=== PATIENT | male | born 1975 | race Hispanic/Latino ===

== ENCOUNTER 2023-02-07 21:28 | Inpatient (IN) | payer SELFPAY ==
[2023-02-07 23:51] LABS: Absolute Lymphocytes (CBC) 2.3 K/uL (0.7-4.9); Hematocrit 46.8 % (39.6-49.0); Lymphocytes % 23.3 % (15.3-44.8); MCV 90.1 fL (80-100); MPV 10.2 fL (7.6-11.3); RBC Red Blood Cell Count 5.19 M/uL (4.33-5.43)
[2023-02-07] MEDS ORDERED: ONDANSETRON 4 MG/2 ML VIAL ONE (23:51)
[2023-02-07] MEDS ORDERED: METOCLOPRAMIDE 10 MG/2mL INJ ONE (23:51)
[2023-02-07] MEDS ORDERED: NA CHLORIDE 0.9% 1,000 ML ONE (23:51)
[2023-02-08 00:13] LABS: Specific Gravity 1.022 (1.005-1.030); Urine Bacteria None Seen /HPF (<20); Urine Bilirubin NEGATIVE (Negative); Urine Blood Negative (Negative); Urine Clarity Turbid (Clear); Urine Color Yellow (Yellow); Urine Glucose NEGATIVE (Negative); Urine Mucus Slight /HPF (None Seen); Urine Protein TRACE (Negative); Urine Urobilinogen Normal (Normal)
[2023-02-08 00:18] LABS: Albumin 4.6 g/dL (3.4-5.0); Bilirubin Total 0.4 mg/dL (0.2-1.0); Potassium 3.7 mEq/L (3.5-5.1); Protein, Total 9.5 g/dL (6.4-8.2)
[2023-02-08] MEDS ORDERED: NA CHLORIDE 0.9% 1,000 ML ONE (01:20)
[2023-02-08 01:39] LABS: Barbiturates NEGATIVE (NEGATIVE); Benzodiazepines NEGATIVE (NEGATIVE); Cocaine NEGATIVE (NEGATIVE); METHAMPHETAM NEGATIVE (NEGATIVE); Methadone NEGATIVE (NEGATIVE); Opiates NEGATIVE (NEGATIVE); Phencyclidine NEGATIVE (NEGATIVE); THC Cannibis NEGATIVE (NEGATIVE)
--- NOTE | 2023-02-08 01:53 | P.HP ---
Certification for Inpatient Patient admitted to: Inpatient With expected LOS: <2 Midnights Patient will require the following post-hospital care: None Practitioner: I am a practitioner with admitting privileges, knowledge of patient current condition, hospital course, and medical plan of care. Services: Services provided to patient in accordance with Admission requirements found in Title 42 Section 412.3 of the Code of Federal Regulations Patient History Date of Service: 02/08/23 Reason for admission: acute renal failure History of Present Illness: 47-year-old male with past medical history of hypertension, hyperlipidemia presents to the ER complains of moderate severe vomiting for the past 2 days. He reports not being able to tolerate p.o. intake food or water, Patient reports mild abdominal discomfort, with bilateral flank pain for 2 days. He reports mild history of constipation, reports loose stools today. 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 He denies fever cough chills, shortness of breath, chest pain, edema. Laboratory evaluation CMP sodium 134, potassium normal 3.7, acute renal failure BUN 58, creatinine 3.48, estimated GFR 21, CT of the abdomen pelvis ordered - Past Medical/Surgical History -: HTN -: HLD -: no prior surg - Social History Smoking Status: Never smoker Alcohol use: No Caffeine use: Yes Review of Systems 10-point ROS is otherwise unremarkable Physical Examination - Physical Exam General: Alert, In no apparent distress, Oriented x3 HEENT: Atraumatic, Normocephalic, PERRLA Neck: Supple, 2+ carotid pulse no bruit, JVD not distended Respiratory: Clear to auscultation bilaterally, Normal air movement Cardiovascular: No edema, Normal pulses, Regular rate/rhythm Capillary refill: <2 Seconds Gastrointestinal: Normal bowel sounds (B) flank tenderness) Musculoskeletal: No clubbing, No swelling - Studies Laboratory Data (last 24 hrs) 02/07/23 23:42: Sodium 134 L, Potassium 3.7, BUN 58 H, Creatinine 3.48 H, Glucose 93, Total Bilirubin 0.4, AST 17, ALT 26, Alkaline Phosphatase 113, Lipase 53 02/07/23 23:42: WBC 9.80, Hgb 15.5, Hct 46.8, Plt Count 203 Assessment and Plan - Plan Assessment plan Dehydration secondary to nausea vomiting Acute renal failure Essential hypertension Hyperlipidemia DVT prophylaxis Assessment plan dehydration secondary to nausea vomiting-IV fluids, as needed antiemetics Acute renal failure-nephrology consult (Dr Llamas notified [id number] text), trend BUN and creatinine, CK, myoglobin, CT of the abdomen pelvis pending result Essential hypertension- Hyperlipidemia-resume home medications DVT prophylaxis Renal diet Full code DVT prophylaxis heparin Discharge Plan: Home Plan to discharge in: 48 Hours - Advance Directives Does patient have a Living Will: No Does patient have a Durable POA for Healthcare: No - Code Status/Comfort Care Code Status: Full Code Physician Review: Patient Assessed, Agree with Above Assessment and Plan Critical Care: No Time Spent Managing Pts Care (In Minutes): 55
[2023-02-08] MEDS ORDERED: ALPRAZOLAM 0.25 MG TABLET PO PRN (01:58)
[2023-02-08] MEDS ORDERED: ONDANSETRON 4 MG/2 ML VIAL IV PRN (01:58)
[2023-02-08] MEDS ORDERED: NA CHLORIDE 0.9% 1,000 ML IV SCH (02:00)
--- NOTE | 2023-02-08 02:12 | EDPHYS ---
Physician Documentation [facility] Name: Lonnie Dunne Age: 47 yrs Sex: Male : 1975 Arrival Date: 02/07/2023 Time: 21:28 Bed 15 Private MD: ED Physician Anderson Tucker HPI: 02/07 21:33 This 47 yrs old Male presents to ER via Unassigned with complaints of Nausea, sp4 Constipation, Fever, Vomiting. 02/08 02:02 vomiting. sp4 02:07 Patient complains of moderate severe vomiting for the past 2 days were no food or water sp4 stated. Patient states he has also had some abdominal discomfort associated with some constipation but he did report he had a stool this morning that was somewhat loose. No previous history of similar problem.. Historical: - Allergies: 02/07 21:46 No Known Allergies; kl - Home Meds: 21:46 lisinopril-hydrochlorothiazide 10-12.5 mg oral tablet daily [Active]; atorvastatin 20 kl mg oral tablet every evening [Active]; - PMHx: 21:46 Hypertensive disorder; high cholesterol; kl - PSHx: 21:46 None; kl - Immunization history:: Adult Immunizations up to date. - Social history:: Smoking status: Patient denies any tobacco usage or history of. - Family history:: not pertinent. ROS: 02/08 02:07 Constitutional: Negative for fever, chills, and weight loss, Eyes: Negative for injury, sp4 pain, redness, and discharge, ENT: Negative for injury, pain, and discharge, Neck: Negative for injury, pain, and swelling, Cardiovascular: Negative for chest pain, palpitations, and edema, Respiratory: Negative for shortness of breath, cough, wheezing, and pleuritic chest pain, Abdomen/GI: Negative for diarrhea, positive for abdominal cramps, nausea vomiting, and constipation Back: Negative for injury and pain, : Negative for injury, bleeding, discharge, and swelling, MS/Extremity: Negative for injury and deformity, Skin: Negative for injury, rash, and discoloration, Neuro: Negative for headache, weakness, numbness, tingling, and seizure, Psych: Negative for depression, anxiety, Allergy/Immunology: Negative for hives, rash, and allergies Endocrine: Negative for neck swelling, polydipsia, polyuria, polyphagia, and weight changes Hematologic/Lymphatic: Negative for swollen nodes, abnormal bleeding, and unusual bruising Exam: 02:07 Constitutional: This is a well developed, well nourished patient who is awake, alert, sp4 and in no acute distress. Head/Face: Normocephalic, atraumatic. Eyes: Pupils equal round and reactive to light, extra-ocular motions intact. Lids and lashes normal. Conjunctiva and sclera are not injected. Cornea within normal limits. Periorbital areas with no swelling, redness, or edema. ENT: Nares patent. No nasal discharge, no septal abnormalities noted. Tympanic membranes are normal and external auditory canals are clear. Oropharynx with no redness, swelling, or masses, exudates, or evidence of obstruction, uvula midline. Mucous membranes moist. Neck: Trachea midline, no thyromegaly or masses palpated, and no cervical lymphadenopathy. Supple, full range of motion without nuchal rigidity, or vertebral point tenderness. Chest/axilla: Normal chest wall appearance and motion. Nontender with no deformity. No lesions are appreciated. Cardiovascular: Regular rate and rhythm with a normal S1 and S2. No gallops, murmurs, or rubs. Normal PMI, no JVD. No pulse deficits. Respiratory: Lungs have equal breath sounds bilaterally, clear to auscultation and percussion. No rales, rhonchi or wheezes noted. No increased work of breathing, no retractions or nasal flaring. Abdomen/GI: Soft, non-tender, with normal bowel sounds. No distension or tympany. No guarding or rebound. No evidence of tenderness throughout. Back: No spinal tenderness. No costovertebral tenderness. Skin: Warm, dry with normal turgor. Normal color with no rashes, no lesions, and no evidence of cellulitis. MS/ Extremity: Pulses equal, no cyanosis. Neurovascular intact. Full, normal range of motion. Neuro: Awake and alert, GCS 15, oriented to person, place, time, and situation. Cranial nerves II-XII grossly intact. Motor strength 5/5 in all extremities. Sensory grossly intact. Psych: Awake, alert, with orientation to person, place and time. Behavior, mood, and affect are within normal limits Vital Signs: 02/07 21:43 BP 129 / 90; Pulse 97; Resp 18; Temp 98.5(TE); Pulse Ox 100% ; Weight 83.01 kg; Height kl 6 ft. 1 in. ; Pain 0/10; 02/08 00:44 BP 125 / 74; Pulse 70; Resp 16; Pulse Ox 99% on R/A; ll3 01:30 BP 107 / 71; Pulse 68; Resp 17; Pulse Ox 99% on R/A; ll3 02/07 21:43 Body Mass Index 24.14 (83.01 kg, 185.42 cm) kl 02/07 21:43 Pain Scale: Adult kl MDM: 02/07 21:38 Patient medically screened. sp4 02/08 01:41 ED course: HISTORY: Abdominal pain COMPARISON: None. TECHNIQUE: Abdomen/pelvis axial sp4 images acquired without contrast. Coronal and sagittal reformats created. Exam performed according to departmental dose-optimization program which includes automated exposure control, adjustment of mA and/or kV according to patient size, and/or use of iterative reconstruction technique. FINDINGS: No free air or significant free fluid. Multiple, small, nonobstructing, bilateral (right greater than left) renal stones. Liver, gallbladder, spleen, pancreas, adrenals, and urinary bladder unremarkable noncontrast appearance. Stomach difficult to accurately comment upon due to its minimal distention. Nonopacified small bowel, appendix, and large bowel appear grossly unremarkable. Portions of large bowel difficult to accurately evaluate due to lack of distention. Abdominal aorta unremarkable noncontrast appearance. Few small round left inferior pelvic calcifications likely represent phleboliths. Bones unremarkable. Mild L5/S1 degenerative disc disease. IMPRESSION: Multiple, small, non obstructing, bilateral (right greater than left) renal stones.. 02:07 Differential diagnosis: gastritis, cholecystitis, pancreatitis, appendicitis, sp4 diverticulitis, viral gastroenteritis, gastroenteritis. Data reviewed: vital signs, nurses notes, lab test result(s), amylase and lipase, CBC, electrolytes, Flu: hepatic panel, urinalysis, urine drug screen, radiologic studies, CT scan. Consideration of Admission/Observation Patient was admitted/placed on observation. Escalation of care including admission/observation considered. Management of patient was discussed with the following: Hospitalist: Patient discussed with admission team. ED course: Patient presents with pervasive nausea vomiting for the past 2 days, CT revealed no sign of bowel obstruction, patient has elevated creatinine above 3. Patient warrants admission for IV hydration for acute renal insufficiency associated with moderate dehydration. . 02/07 21:33 Order name: CBC with Diff; Complete Time: 01:02 [facility] 02/07 21:33 Order name: CMP; Complete Time: 01:02 [facility] 02/07 21:33 Order name: Lipase; Complete Time: 01:02 [facility] 02/07 21:33 Order name: Urinalysis w/ reflexes; Complete Time: 01:02 [facility] 02/08 01:03 Order name: Urine Drug Screen; Complete Time: 01:40 [facility] 02/08 02:00 Order name: Urinalysis w/ reflexes EDMS 02/08 02:00 Order name: Basic Metabolic Panel EDMS 02/08 02:00 Order name: Basic Metabolic Panel EDMS 02/08 02:00 Order name: Basic Metabolic Panel EDMS 02/08 02:00 Order name: CBC with Automated Diff EDMS 02/08 02:00 Order name: CBC with Automated Diff EDMS 02/08 02:00 Order name: CBC with Automated Diff EDMS 02/08 02:00 Order name: Magnesium EDMS 02/08 02:00 Order name: Magnesium EDMS 02/08 02:00 Order name: Magnesium EDMS 02/08 02:00 Order name: Phosphorus EDMS 02/08 02:00 Order name: Phosphorus EDMS 02/08 02:00 Order name: Phosphorus EDMS 02/07 21:48 Order name: CT Abd/Pelvis - IV Contrast Only [facility] 02/08 02:00 Order name: Renal EDMS 02/08 02:06 Order name: EKG; Complete Time: 02:07 [facility] 02/07 21:33 Order name: IV Saline Lock; Complete Time: 23:43 [facility] 02/07 21:33 Order name: Labs collected and sent; Complete Time: 23:43 [facility] Administered Medications: 02/07 23:50 Drug: Ondansetron IVP 4 mg Route: IVP; Site: right antecubital; [facility] 02/08 01:13 Follow up: Response: No adverse reaction [facility] 02/07 23:50 Drug: NS 0.9% IV 1000 ml Route: IV; Rate: 1 bolus; Site: right antecubital; [facility] 02/08 01:13 Follow up: Response: No adverse reaction; IV Status: Completed infusion; IV Intake: 3 1000ml 02/07 23:50 Drug: metoCLOPramide IVP 10 mg Route: IVP; Site: right antecubital; ll3 02/08 01:13 Follow up: Response: No adverse reaction 3 01:19 Drug: NS 0.9% IV 1000 ml Route: IV; Rate: 125 ml/hr; Site: right antecubital; ll3 Disposition Summary: 02/08/23 02:12 Hospitalization Ordered Hospitalization Status: Inpatient Admission sp4 Provider: Joao Heath sp4 [facility] sp4 Condition: Stable sp4 Problem: new sp4 Symptoms: have improved sp4 Bed/Room Type: Standard sp4 Room Assignment: 409(02/08/23 02:34) cg Diagnosis - Dehydration sp4 - Acute kidney injury secondary to moderate dehydration. Acute renal insufficiency sp4 Forms: - Medication Reconciliation Form sp4 - SBAR form sp4 Signatures: Dispatcher [employer] EDAmina Mcgarry RN RN kl Garcia, Cindy, RN RN cg Loubet, Lynsea, RN RN 3 Anderson Tucker MD MD sp4 Corrections: (The following items were deleted from the chart) 01:13 01:03 Urinalysis W/Microscopic+U.LAB.BRZ ordered. EDAR EDMS 02:34 02:12 sp4 cg
--- NOTE | 2023-02-08 02:12 | ER ---
Nurse's Notes [facility] Name: Lonnie Dunne Age: 47 yrs Sex: Male : 1975 Arrival Date: 02/07/2023 Time: 21:28 Bed 15 Private MD: Diagnosis: Dehydration;Acute kidney injury secondary to moderate dehydration. Acute renal insufficiency Presentation: 02/07 21:43 Chief complaint: Patient states: nausea and vomiting constipation x 2 days. Coronavirus kl screen: Vaccine status: Patient reports being unvaccinated. Ebola Screen: Patient negative for fever greater than or equal to 101.5 degrees Fahrenheit, and additional compatible Ebola Virus Disease symptoms. Initial Sepsis Screen: Does the patient meet any 2 criteria? No. Patient's initial sepsis screen is negative. Does the patient have a suspected source of infection? No. Patient's initial sepsis screen is negative. Risk Assessment: Do you want to hurt yourself or someone else? Patient reports no desire to harm self or others. 21:43 Method Of Arrival: Ambulatory 21:43 Acuity: OZZIE 3 kl 22:00 Onset of symptoms was February 05, 2023. ll3 Triage Assessment: 21:48 General: Appears in no apparent distress. Behavior is calm, cooperative. Pain: Denies kl pain. GI: Reports constipation, intolerance of fluids, intolerance of food, nausea, vomiting. Historical: - Allergies: 21:46 No Known Allergies; kl - Home Meds: 21:46 lisinopril-hydrochlorothiazide 10-12.5 mg oral tablet daily [Active]; atorvastatin 20 kl mg oral tablet every evening [Active]; - PMHx: 21:46 Hypertensive disorder; high cholesterol; kl - PSHx: 21:46 None; kl - Immunization history:: Adult Immunizations up to date. - Social history:: Smoking status: Patient denies any tobacco usage or history of. - Family history:: not pertinent. Screenin/13 01:57 [facility] ED Fall Risk Assessment (Adult) History of falling in the last 3 months, ll3 including since admission No falls in past 3 months (0 pts) Confusion or Disorientation No (0 pts) Intoxicated or Sedated No (0 pts) Impaired Gait No (0 pts) Mobility Assist Device Used No (0 pt) Altered Elimination No (0 pt) Score/Fall Risk Level 0 - 2 = Low Risk Oriented to surroundings, Maintained a safe environment, Educated pt \T\ family on fall prevention, incl call for assistance when getting out of bed. Abuse screen: Denies threats or abuse. Denies injuries from another. Nutritional screening: No deficits noted. Tuberculosis screening: No symptoms or risk factors identified. Assessment: 00:44 General: Appears comfortable, Behavior is calm, cooperative. Pain: Denies pain. GI: ll3 Abdomen is round non-distended, Reports lower abdominal pain, upper abdominal pain, constipation, nausea, vomiting. Derm: Skin is pink, warm \T\ dry. 01:57 Reassessment: Patient and/or family updated on plan of care and expected duration. Pain ll3 level reassessed. Patient is alert, oriented x 3, equal unlabored respirations, skin warm/dry/pink. Patient states symptoms have improved. Vital Signs: 02/07 21:43 BP 129 / 90; Pulse 97; Resp 18; Temp 98.5(TE); Pulse Ox 100% ; Weight 83.01 kg; Height kl 6 ft. 1 in. ; Pain 0/10; 02/08 00:44 BP 125 / 74; Pulse 70; Resp 16; Pulse Ox 99% on R/A; ll3 01:30 BP 107 / 71; Pulse 68; Resp 17; Pulse Ox 99% on R/A; ll3 02/07 21:43 Body Mass Index 24.14 (83.01 kg, 185.42 cm) 02/07 21:43 Pain Scale: Adult ED Course: 02/07 21:31 Patient arrived in ED. ja2 21:33 Anderson Tucker MD is Attending Physician. sp4 21:46 Triage completed. kl 22:00 Patient has correct armband on for positive identification. Bed in low position. Call ll3 light in reach. Side rails up X 1. Adult w/ patient. 23:10 Arm band placed on Patient placed in an exam room, on a stretcher, on pulse oximetry. ll3 23:43 CBC with Diff Sent. mb9 23:43 CMP Sent. mb9 23:43 Lipase Sent. mb9 23:43 Inserted saline lock: 20 gauge in right antecubital area, using aseptic technique. 9 02/08 01:01 CT Abd/Pelvis - IV Contrast Only In Process Unspecified. EDMS 01:57 No provider procedures requiring assistance completed. ll3 02:11 Joao Heath is Hospitalizing Provider. sp4 02:48 Patient admitted, IV remains in place. intact, No redness/swelling at site. lg3 Administered Medications: 02/07 23:50 Drug: Ondansetron IVP 4 mg Route: IVP; Site: right antecubital; ll3 02/08 01:13 Follow up: Response: No adverse reaction ll3 02/07 23:50 Drug: NS 0.9% IV 1000 ml Route: IV; Rate: 1 bolus; Site: right antecubital; ll3 02/08 01:13 Follow up: Response: No adverse reaction; IV Status: Completed infusion; IV Intake: ll3 1000ml 02/07 23:50 Drug: metoCLOPramide IVP 10 mg Route: IVP; Site: right antecubital; 3 02/08 01:13 Follow up: Response: No adverse reaction ll3 01:19 Drug: NS 0.9% IV 1000 ml Route: IV; Rate: 125 ml/hr; Site: right antecubital; ll3 Medication: 01:57 VIS not applicable for this client. ll3 Intake: 01:13 IV: 1000ml; Total: 1000ml. ll3 Outcome: 02:12 Decision to Hospitalize by Provider. sp4 02:48 Admitted to Med/surg accompanied by tech, via wheelchair, room 409, Report called to Fabricio Beckham 02:48 Condition: stable 02:48 Instructed on the need for admit, Demonstrated understanding of instructions. 02:48 Patient left the ED. 3 Signatures: Dispatcher [employer] Amina Bowman RN RN kl Gibson, Lacie, RN RN lg3 Vickie Bright Lynsea, RN RN ll3 Sugar Greco RN RN mb9 Potepalov, Sergey, MD MD sp4
[2023-02-08 03:28] VITALS: BMI 24.1
[2023-02-08 06:15] LABS: Absolute Lymphocytes (CBC) 2.6 K/uL (0.7-4.9); Hematocrit 39.9 % (39.6-49.0); Lymphocytes % 30.4 % (15.3-44.8); MCV 90.3 fL (80-100); MPV 10.6 fL (7.6-11.3); RBC Red Blood Cell Count 4.42 M/uL (4.33-5.43)
[2023-02-08 06:39] LABS: Magnesium 2.7 mg/dL (1.6-2.4); Phosphorus 3.4 mg/dL (2.5-4.9)
[2023-02-08 07:28] LABS: Potassium 3.6 mEq/L (3.5-5.1)
[2023-02-08 08:06] LABS: Specific Gravity 1.022 (1.005-1.030); Urine Bacteria None Seen /HPF (<20); Urine Bilirubin NEGATIVE (Negative); Urine Blood Negative (Negative); Urine Clarity Clear (Clear); Urine Color Light-Yellow (Yellow); Urine Glucose NEGATIVE (Negative); Urine Mucus Slight /HPF (None Seen); Urine Protein TRACE (Negative); Urine RBC <5 /HPF (None Seen); Urine Urobilinogen Normal (Normal)
[2023-02-08 08:09] LABS: Uric Acid 10.4 mg/dL (3.5-7.2)
[2023-02-08] MEDS: HEPARIN 5000 UNIT/ML 1 ML VIAL SQ SCH ×2 (09:11→16:25)
[2023-02-08 09:58] LABS: Protime INR 0.96
--- NOTE | 2023-02-08 11:03 | RAD REPORT ---
EXAM DESCRIPTION: US - Renal Ultrasound-Complete - 02/08/2023 10:13 am CLINICAL HISTORY: acute renal failure COMPARISON: Abdomen Pelvis W Contrast dated 02/08/2023 TECHNIQUE: Sonographic grayscale and color flow images of the kidneys and bladder were obtained. FINDINGS: Both kidneys are normal in size, shape and echotexture. The right kidney measures 11.9 cm in length. No hydronephrosis although there is mild prominence of t he right renal pelvis. No focal mass or perinephric fluid. The left kidney measures 10.7 cm in length. No hydronephrosis, focal mass or perinephric fluid. Punctate mildly echogenic foci near the pelvis bilaterally, nonshadowing, could represent vascular wa ll/calcification, or small calculi. The urinary bladder is without gross abnormality seen. Mildly prominent prostate gland IMPRESSION: Mild prominence of the right renal pelvis without karyn hydronephrosis bilaterally. Scattered echogenic foci bilaterally, could represent vascular wall/ calcification, or small calculi. Mildly prominent prostate gland.
[2023-02-08] MEDS ORDERED: POTASSIUM CL SA 10 MEQ TAB PO ONE (13:14)
[2023-02-08] MEDS: NA CHLORIDE 0.9% 1,000 ML IV SCH ×2 (16:25→23:14)
--- NOTE | 2023-02-08 16:57 | P.PN ---
Date of Service: 02/08/23 Patient seen and examined. He reports no history of kidney disease. ALICE likely secondary to dehydration. He currently has no complain. He denies any nausea or vomiting or diarrhea. Renal function improved significantly with IV fluid. Continue IV hydration.
--- NOTE | 2023-02-08 18:32 | CON ---
Date of Consultation: 02/08/2023 Reason For Consultation: Elevated BUN and creatinine, fluid management. History Of Present Illness: This is a 47-year-old gentleman with significant past medical history of hypertension, hyperlipidemia, patient came to the hospital complaining from nausea and vomiting for the last few days with constipation. Upon arrival to the hospital, found to have elevation in BUN an d creatinine. Creatinine 3.4, and hypokalemia. For that reason, we have been consulted. Patient de nied taking any nonsteroidal. No IV contrast. Patient denied any recent change in his medications. Patient been at home on LYNN inhibitor. Past Medical History: Includes: 1.Hypertension. 2.Hyperlipidemia. Social History: Denies smoking. Active alcohol. No drug abuse. Home Medications: Includes lisinopril and atorvastatin. Review of Systems: Head and Neck: No red eye. No ear pain. GI: Has nausea, vomiting. Has constipation. : No polyuria, no dysuria, no hematuria. Avionics Mechanic: Not applicable. Respiratory: No shortness of breath. Cardiovascular: No chest pain. No neuropathy. No weakness. Musculoskeletal: Generalized fatigue and abdominal pain. Physical Examination: Vital Signs: When I saw the patient, blood pressure 108/56. Patient did not have any lower blood pr essure. Pulse of 60. Afebrile. Chest: Clear to auscultation. Heart: S1, S2. Regular. Abdomen: Soft, nontender. Extremity: No edema. Neuro: Alert. No focality. Laboratory Data: Hemoglobin 13.2, upon arrival it was 15.5. Sodium 137, potassium 3.6, bicarb 25, B UN 53, creatinine 2.5, calcium 7.8 yesterday. Upon admission, sodium 134, creatinine 3.4, PTH is 64. Urinalysis was negative for infection. Urine drug screen was negative. Current Medications: The patient on, it includes heparin, alprazolam, D5 normal saline at 75 per gonzalo r. Assessment And Plan: 1.Acute kidney injury secondary to prerenal, superimposed with LYNN inhibitor use. Obstructive uropa thy has been ruled out. Normal size kidney. I am going to increase IV fluid to 100. Keep holding l isinopril and we will monitor the patient. We will send for PTH to evaluate the chronicity of the di sease. 2.Hypertension with the presence of acute kidney injury. Hold LYNN inhibitor. 3.Hyponatremia, depletion. Continue IV fluid. 4.Hypokalemia. We will supplement. 5.Gastroenteritis with constipation. As by primary. Thank you, Dr. Heath, for allowing us to participate in the care of your patient. ODALIS Voice ID: [id number] Report ID: [id number]
--- NOTE | 2023-02-08 20:33 | RAD REPORT ---
EXAM DESCRIPTION: CT - Abdomen Pelvis W Contrast - 02/08/2023 4:26 am CLINICAL HISTORY: Abdominal pain COMPARISON: None. TECHNIQUE: Abdomen/pelvis axial images acquired without contrast. Coronal and sagittal reformats cre ated. Exam performed according to departmental dose-optimization program which includes automated exp osure control, adjustment of mA and/or kV according to patient size, and/or use of iterative reconstr uction technique. FINDINGS: No free air or significant free fluid. Multiple, small, nonobstructing, bilateral (right greater than left) renal stones. Liver, gallbladder, spleen, pancreas, adrenals, and urinary bladder unremarkable noncontrast appearan ce. Stomach difficult to accurately comment upon due to its minimal distention. Nonopacified small bowel, appendix, and large bowel appear grossly unremarkable. Portions of large bowel difficult to accurately evaluate due to lack of distention. Abdominal aorta unremarkable noncontrast appearance. Few small round left inferior pelvic calcifications likely represent phleboliths. Bones unremarkable. Mild L5/S1 degenerative disc disease. IMPRESSION: Multiple, small, nonobstructing, bilateral (right greater than left) renal stones. Electronically signed by: Yovany Damon MD 02/08/2023 1:33 AM CDT Due to temporary technical issues with the PACS/Fluency reporting system, reports are being signed by the in house radiologists without review as a courtesy to insure prompt reporting. The interpreting radiologist is fully responsible for the content of the report.
[2023-02-09] MEDS: HEPARIN 5000 UNIT/ML 1 ML VIAL SQ SCH ×2 (01:00→09:29)
[2023-02-09 08:26] VITALS: BP 121/81; TEMP 97.9
[2023-02-09 08:28] LABS: Specific Gravity 1.023 (1.005-1.030); Urine Bilirubin NEGATIVE (Negative); Urine Blood Negative (Negative); Urine Clarity Clear (Clear); Urine Color Light-Yellow (Yellow); Urine Glucose NEGATIVE (Negative); Urine Protein NEGATIVE (Negative); Urine Urobilinogen Normal (Normal); Urine pH 5.5 (5.0-7.0)
[2023-02-09 08:39] LABS: Absolute Lymphocytes (CBC) 1.6 K/uL (0.7-4.9); Hematocrit 37.4 % (39.6-49.0); Lymphocytes % 25.5 % (15.3-44.8); MCV 90.5 fL (80-100); RBC Red Blood Cell Count 4.14 M/uL (4.33-5.43)
[2023-02-09 09:14] LABS: Potassium 4.7 mEq/L (3.5-5.1)
[2023-02-09] MEDS: NA CHLORIDE 0.9% 1,000 ML IV SCH (09:14)
[2023-02-09 09:17] LABS: Magnesium 2.4 mg/dL (1.6-2.4); Phosphorus 1.6 mg/dL (2.5-4.9)
[2023-02-09 10:11] VITALS: O2SAT 96
[2023-02-09] MEDS: POTASS/SODIUM PHOSPHATE 1 PKT POWD.PACK PO SCH ×3 (10:39→14:07)
--- NOTE | 2023-02-09 12:36 | P.DS ---
Admission Date: 02/08/23 Discharge Date: 02/09/23 Disposition: ROUTINE DISCHARGE Discharge Condition: FAIR Reason for Admission: acute renal failure - Problems (1) Acute renal failure Status: Acute (2) Essential hypertension Status: Acute (3) Hyperlipidemia Status: Acute Brief History of Present Illness: 47-year-old male with past medical history of hypertension, hyperlipidemia presents to the ER complains of moderate severe vomiting for the past 2 days. He reports not being able to tolerate p.o. intake, food or water, Patient reported mild abdominal discomfort, with bilateral flank pain for 2 days. He reported loose stools. He reports working out in the heat as [employer]. He denied fever cough chills, shortness of breath, chest pain, edema. Laboratory evaluation CMP sodium 134, potassium normal 3.7, acute renal failure BUN 58, creatinine 3.48, estimated GFR 21, CT of the abdomen pelvis unremarkable. Patient was hospitalized for further management of acute renal failure. Hospital Course: Patient admitted to the medical floor and aggressively hydrated with IV fluid. He was seen in consultation by nephrology who assisted with management. His ALICE responded well to the IV fluid. Serum creatinine normalized. He had no more episodes of vomiting, had no diarrhea. He tolerated his diet and patient was ambulatory. He is clinically stable for discharge. He is on lisinopril and hydrochlorothiazide which were held during the hospital stay and resumed on discharge. Vital Signs/Physical Exam: Temp Pulse Resp BP Pulse Ox 97.9 F 64 16 121/81 96 02/09/23 08:00 02/09/23 08:00 02/09/23 08:00 02/09/23 08:00 02/09/23 08:00 General: Alert, In no apparent distress, Oriented x3 HEENT: Mucous membr. moist/pink Neck: Supple, JVD not distended Respiratory: Clear to auscultation bilaterally, Normal air movement Cardiovascular: No edema, Regular rate/rhythm, Normal S1 S2 Gastrointestinal: Normal bowel sounds, Soft and benign, Non-distended, No tenderness Musculoskeletal: No swelling Integumentary: No rashes, No cyanosis Neurological: Normal strength at 5/5 x4 extr Laboratory Data at Discharge: WBC 6.10 thou/uL (4.3-10.9) 02/09/23 08:05 Hgb 12.6 g/dL (13.6-17.9) L 02/09/23 08:05 Hct 37.4 % (39.6-49.0) L 02/09/23 08:05 Plt Count 141 thou/uL (152-406) L 02/09/23 08:05 PT 11.4 SECONDS (9.2-12.8) 02/08/23 07:42 INR 0.96 02/08/23 07:42 Sodium 141 mEq/L (136-145) 02/09/23 08:05 Potassium 4.7 mEq/L (3.5-5.1) D 02/09/23 08:05 BUN 27 mg/dL (7-18) H 02/09/23 08:05 Creatinine 1.13 mg/dL (0.70-1.30) 02/09/23 08:05 Glucose 103 mg/dL (74-106) 02/09/23 08:05 Uric Acid 10.4 mg/dL (3.5-7.2) H 02/08/23 05:13 Phosphorus 1.6 mg/dL (2.5-4.9) L 02/09/23 08:05 Magnesium 2.4 mg/dL (1.6-2.4) 02/09/23 08:05 Total Bilirubin 0.4 mg/dL (0.2-1.0) 02/07/23 23:42 AST 17 U/L (15-37) 02/07/23 23:42 ALT 26 U/L (16-61) 02/07/23 23:42 Alkaline Phosphatase 113 U/L (45-117) 02/07/23 23:42 Lipase 53 U/L (13-75) 02/07/23 23:42 Home Medications: Atorvastatin Calcium [Lipitor*] 10 mg PO BEDTIME 02/08/23 Diet: AHA Activity: Ad isabelle Followup: Ludmila Anaya MD [ACTIVE - CAN ADMIT] - 1-2 Weeks (kidney doctor- call to schedule an appointment) Time spent managing pt's care (in minutes): 33
== END 2023-02-09 14:19 | disposition home or self-care (01) | DRG 683 ==
LOC: ER 21:28 → ERHOLD 02-08 01:54 → 4TH 02-08 02:43
PROVIDERS: ADMIT Internal Medicine; ATTEND Internal Medicine
DX: N17.9 Acute kidney failure, unspecified (principal); E87.1 Hypo-osmolality and hyponatremia; E86.0 Dehydration; I10 Essential (primary) hypertension; E87.6 Hypokalemia; E78.5 Hyperlipidemia, unspecified; K52.9 Noninfective gastroenteritis and colitis, unspecified; K59.00 Constipation, unspecified; R11.2 Nausea with vomiting, unspecified; Z79.899 Other long term (current) drug therapy
CPT/HCPCS: 36415; 74177; 76770; 80048; 80053; 80307; 81001; 81003; 82550; 82570; 83690; 83735; 83874; 83970; 84100; 84156; 84550; 85025; 85610; 93005; 96361; 96374; 96375; 99285; J1644; J2405; J2765; J7030

== ENCOUNTER 2023-03-04 11:50 | Emergency (ER) | payer SELFPAY ==
--- OUTSIDE RECORDS SUMMARY | 2023-03-04 11:52 | XMS REPORT | Continuity of Care Document ---
:1975 Author Organization [facility] t Address [address] [place] [address] [address] [place] [address] Care Team Providers Name Role Phone Glenna Arnoldo Gandhi Attending Clinician Unavailable Physician, No Primary or Family Admitting Clinician Unavaila JOHNSON Carey Admitting Clinician Unavailable Payers Payer Name Policy Type Policy Number Effective Date Expiration Date S ource Problems This patient has no known problems. Allergies, Adverse Reactions, Alerts Allergy Allergy Status Severity Reaction(s) Onset Inactive Treating Comm ents Source Name Type Date Date Clinician No Known DA Active U 2014-07 [facility] All[facility]ie 2-15 Clear s 00:00: [address] Medications This patient has no known medications. Procedures This patient has no known procedures. Encounters Start End Encounter Admission Attending Care Care Encounter Source Date/Time Date/Time Type Type Clinicians Facility Department ID 2021-12-21 2021-12-21 Emergency EM OJODY george AERS [id number] [facility] 09:57:00 10:47:00 [place] 99 [facility] 2021-12-21 2021-12-21 Emergency EM JODY Manzanares HCACL [id number] [facility] 09:57:00 10:47:00 [place] [id number] [facility] Results Test Description Test Time Test Comments Results Result Comments Source Coronavirus 2019 nCoV Bedside 2021-12-21 10:40:00 Test Item Value Reference Range Interpretation Comme nts Coronavirus Negative Negative 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 With NEAR technology,amplified target detection is [id number]) achieved with the use offluorescently labeled molecular beacons, compar able to PCRtechniques Nega tive results sh ould be treated as presumptive and, ifinconsistent with clinical signs and symptoms or necessaryfor patient managem ent, should be tested with an alternativemole cular assay. Negative results do not preclude [id number] tion and should not be used as the sole basis forpatient alexadnria gement decisions. Negative results should beconsidered in the context of a patient's recent exposures,histo ry, presence of clinical signs and symptoms consistentwith COVID-19. INFLUENZA A B [id number] 10:39:00 Test Item Value Reference Range Interpretation Comments INFLUENZA A POC POSITIVE NEGATIVE A (test code = INFLAAG) INFLUENZA B POC NEGATIVE NEGATIVE Performed by certified (test code = glue jointer operator at [facility] INFLBAG) CtrID-NOW Influ padmini A&B assay is a rapi d molecular in vitro diagno stic test utilizing an is othermal nucleic acidamp lification technology for the qualitative det ectionand discrimination of influenza A and B viral RNA. AG STREP GROUP A (THROAT)2021-12-21 10:35:00 Test Item Value Reference Range Interpretation Comments AG STREP GROUP A NEGATIVE Negative Performed b y certified (THROAT) (test grader at [facility] code = STREPA) CtrID-NOW Str ep-A is a rapid, instrume nt-based, molecular invit ro diagnostic test utilizing isothermal nucleic acidamp lification technology for the qualitative det ection ofStreptococcus pyogenes Notes Date/Time Note Provider Source 2021-12-21 10:40:00-00:00 [facility] ([facility]) EMERGENCY PROVIDER REPORT REPORT#:[id number] REPORT STATUS: Signed DATE:12/21/21 TIME: 104 PATIENT: GIDEON CHUNG UNIT #: [id number] ROOM/BED: AGE: 46 SEX: M PCP PHYS: Undefined Provider SERVICE AUTHOR: Natali Manzanares MD * ALL edits or amendments must be made on the [employer]/computer document * HPI-URI/Cough/Cold Free Text HPI Notes Free Text HPI Notes 46-year-old male with no past medical history pr esents with sore throat and cough. Patient reports on Sunday, he developed s ore throat, productive cough, decreased appetite, myalgias. Patient reports fe rikki 100.9 today. Multiple family members at home also sick. Patient report s taking Mucinex and DayQuil with some relief. Patient is vaccinated against COVID but not against flu this season. General Initial Greet Date/Time 12/21/21956 Presentation Chief Complaint Cough, productive, Fever, Sore t hroat Review of Systems Focused Review of Systems Constitutional Reports: Fever. Ears/Nose/Throat Reports: Sore throat. Respiratory Reports: Cough, productive. Denies: Shortness of breath. GI Denies: Vomiting. Additional Review of Systems Musculoskeletal Reports: Myalgia. Past Medical History - Adult Stated Complaint SORETHROAT, BODYACHES, COUGH, F ATIGUE, FEVER Allergies Coded Allergies: No Known Allergies (07/13/15) Calculated Suicide Risk (nurs) No risk Pt reports no significant: Past medical history Smoking status: Smoking status for patients 13 years old or old er: Current every day smoker Physical Exam Vital Signs Vital Signs First Documented: Result Date Time Pulse Ox 97 12/21 0959 B/P 135/89 12/21 0959 B/P Mean 104 12/21 958 O2 Delivery Room air 12/21 958 Temp 38.3 12/21 958 Pulse 101 12/21 0959 Resp 20 12/21 958 Last Documented: Result Date Time Pulse Ox 97 12/21 0959 B/P 135/89 12/21 0959 B/P Mean 104 05/25 0959 O2 Delivery Room air 05/25 0959 Temp 38.3 12/21 958 Pulse 101 12/21 958 Resp 20 12/21 958 Review of Vital Signs Reviewed Focused PE General/Const General/Const Awake, Alert, No acute distress, Not toxic appearing Ears/Nose/Throat Ears/Nose/Throat Airway patent, Mucous membrane s moist, Pharynx NL, No peritonsillar abscess MS Neck Neck No meningismus, Full range of motion Resp/Chest Respiratory/Chest Breath sounds NL, Breath soun ds = bilat, No respiratory distress Cardiovascular Cardiovascular Regular rhythm, Heart sounds NL Heart Rate/Rhythm Tachycardia (low 100s in setting of fever). Skin Skin Color NL Interpretation Diagnostics Lab Results Interpretation Results Laboratory Tests: 12/21 12/21 12/21 1028 1028 1027 Serology POC Influenza A Ag (NEGATIVE) POSITIVE H POC Influenza B Ag (NEGATIVE) NEGATIVE SARS CoV-2 RNA Rapid VIRIDIANA (Negative) Negative Group A Strep Screen (Negative) NEGATIVE Re-Evaluation MDM Free Text MDM Notes Free Text MDM Notes 46-year-old male presents with URI sympt oms. Lung exam unremarkable, suspicion for pneumonia. Will test for strep, COVI D, influenza. Tylenol given for fever. Re-Evaluation/Progress Re-Evaluation/Progress Text/Dict Note Flu a positive. Strep and COVID-negative. Patien t out of the window for Tamiflu. Discharged home with lynn Yeboahtructions for symptomatic management, return precautions, PCP follow-up. URI/Flu Adult MDM Note The patient is now resting c omfortably, is alert and in no distress. The patient has a normal mental status and is neurologically intact. The patient appears well and is able to tolerate food or fluid by mouth, and there is no significant dehydration. There is no res piratory distress and no signs of systemic toxicity. The history, exam, diagnostic testing (if any) a nd current condition do not demonstrate an infectious process such as mening itis, severe pneumonia, retropharyngeal abscess, epiglottitis, sepsis or other serious bacterial infection requiring further testing, treatment, consultation, or admission at this time. The vital signs have been sta ble. The patient's condition is stable and appropriate for discharge. The patient will pursue further outpatient evaluation with the primary care physician or ot her designated or consulting physician as indicated in the discharge instruct ions. ED Course Medication(s) Ordered Medication(s) Ordered: Central Nervous System Agents Sig/Jocy Start time Last Medication Dose Route Stop Time Status Admin Acetaminophen 650 MG X1ED STA 12/21 1008 DC PO 12/21 1009 1018 Patient Discharge Departure Vital Signs/Condition Vital Signs First Documented: Result Date Time Pulse Ox 97 12/21 0959 B/P 135/89 12/21 0959 B/P Mean 104 12/21 0959 O2 Delivery Room air 12/21 09 Temp 38.3 12/21 0959 Pulse 101 12/21 0959 Resp 20 12/21 0959 Last Documented: Result Date Time Pulse Ox 97 12/21 0959 B/P 135/89 12/21 0959 B/P Mean 104 12/21 0959 O2 Delivery Room air 12/21 0859 Temp 38.3 12/21 0959 Pulse 101 12/21 0959 Resp 20 12/21 0959 All vital signs available at the time of this en try have been reviewed. Clinical Impression Clinical Impression Primary Impression: Influenza A Disposition Decision Discharge )( Discharged to Home Yes )( Time 1041 )( Date 12/21/21 Discharge/Care Plan Counseled Regarding Diagnosis, Lab resul ts, Prescriptions, Need for follow-up, When to return to ED (Auto) Prescriptions Current Visit Scripts BENZONATATE (TESSALON) 100 MG PO Q8H PRN PRN COU GH BENZONATATE (TESSALON) 100 MG PO Q8H PRN PRN CO [facility] #30 CAPS Patient Instructions ED Influenza (Adult) Additional Instructions While he have a fever, you a re still infectious. Need to isolate until 24 hours since last fever, without having taken Tylenol o r ibuprofen. Patient should not attend classes until without a fever for 24 hours. Referrals Provider Group: PRIMARY CARE Follow-Up: 1 Week Discharge Note I have spoken with the patie nt and/or caregivers. I have explained the patient's condition, diagnoses and beth atment plan based on the information available to me at this time. I have answered the patient's and/ or caregiver's questions and addressed any concerns. The patient and/or careg queta have as good an understanding of the patient 's diagnosis, condition and treatment plan as can be expected at this point. The vital signs have bee n stable. The patient's condition is stable and appr opriate for discharge from the emergency department. The patient will pursue further outpatient evalu ation with the primary care physician or other designated or consulting phys ician as outlined in the discharge instructions. The patient and/or caregivers are agreeable to this plan of care and follow-up instructions have been exp lained in detail. The patient and/or caregivers have received these instructio ns in written format and have expressed an understanding of the discharge inst ructions. The patient and/or caregivers are aware that any significant change in condition or worsening of symptoms should prompt an immediate return to [facility] or the closest emergency department or a call to 911. at 1127 RPT #:[id number] END OF REPORT
--- NOTE | 2023-03-04 12:35 | RAD REPORT ---
EXAM DESCRIPTION: CT - Stone Protocol - 03/04/2023 12:24 pm CLINICAL HISTORY: Abdominal pain. Right flank pain COMPARISON: February 08, 2023 TECHNIQUE: Computed axial tomography of the abdomen pelvis was obtained without oral or IV contrast. Lack of IV and oral contrast limits evaluation of solid organs, appendix, bowel, and vessels. Gonzalez l reformatted images were obtained and reviewed. All CT scans are performed using dose optimization technique as appropriate and may include automated exposure control or mA/KV adjustment according to patient size. FINDINGS: Multiple small bilateral renal calculi. No hydronephrosis. Ureteral calculus is seen. No b ladder calculus The liver, spleen, pancreas and adrenals appear grossly normal There is no evidence of diverticulitis. The appendix appears normal Mild posterior subluxation L5 on S1 with spondylosis IMPRESSION: Multiple, small bilateral nonobstructing renal calculi
[2023-03-04 12:51] LABS: Absolute Lymphocytes (CBC) 1.8 K/uL (0.7-4.9); Hematocrit 38.6 % (39.6-49.0); Lymphocytes % 27.3 % (15.3-44.8); MCV 91.3 fL (80-100); MPV 9.8 fL (7.6-11.3); Platelets 166 thou/uL (152-406); RBC Red Blood Cell Count 4.23 M/uL (4.33-5.43)
[2023-03-04 13:11] LABS: Specific Gravity 1.009 (1.005-1.030); Urine Bilirubin NEGATIVE (Negative); Urine Blood Negative (Negative); Urine Clarity Clear (Clear); Urine Color Colorless (Yellow); Urine Glucose NEGATIVE (Negative); Urine Protein NEGATIVE (Negative); Urine Urobilinogen Normal (Normal)
[2023-03-04 13:12] LABS: Albumin 3.5 g/dL (3.4-5.0); Bilirubin Total 0.4 mg/dL (0.2-1.0); Potassium 3.6 mEq/L (3.5-5.1); Protein, Total 7.2 g/dL (6.4-8.2)
--- NOTE | 2023-03-04 13:36 | ER ---
Nurse's Notes [facility] Name: Lonnie Dunne Age: 47 yrs Sex: Male : 1975 Arrival Date: 03/04/2023 Time: 11:50 Bed 11 Private MD: Diagnosis: Low back pain Presentation: 03/04 12:46 Acuity: OZZIE 3 iw Historical: - Allergies: 12:46 No Known Allergies; iw - PMHx: 12:46 High Cholesterol; Hypertensive disorder; iw Screenin:06 [facility] ED Fall Risk Assessment (Adult) History of falling in the last 3 months, iw including since admission. Abuse screen: Denies threats or abuse. Denies injuries from another. Nutritional screening: No deficits noted. Tuberculosis screening: No symptoms or risk factors identified. Assessment: 13:05 General: Appears in no apparent distress. Behavior is calm, cooperative. Pain: Denies iw pain. Complains of pain in low back area and right mid back. Neuro: Level of Consciousness is awake, alert, obeys commands, Oriented to person, place, time, situation, Moves all extremities. Full function. Derm: Skin is intact, is healthy with good turgor. Vital Signs: 12:46 BP 131 / 93; Pulse 57; Resp 16; Temp 97.6; Pulse Ox 97% on R/A; iw ED Course: 11:54 Patient arrived in ED. im 11:56 Inga Fernandez FNP-C is PHCP. kb 11:56 Michael Barillas MD is Attending Physician. kb 12:25 CT Stone Protocol In Process Unspecified. EDMS 12:30 Inserted saline lock: 20 gauge in right forearm, using aseptic technique. iw 12:46 Vinita Reynolds, RN is Primary Nurse. iw 12:46 Triage completed. iw 12:46 Arm band placed on. iw 13:06 No provider procedures requiring assistance completed. iw Administered Medications: 13:53 Not Given (Patient Refused): Ketorolac IVP 15 mg IVP once iw Medication: 13:06 VIS not applicable for this client. iw Outcome: 13:36 Discharge ordered by . kb 13:53 Patient left the ED. iw Signatures: Dispatcher [employer] EDMS Inga Fernandez FNP-C FIELD IDENTIFICATION SPECIALIST-Vinita Adames, RN RN iw [place], Leighann im
--- NOTE | 2023-03-04 13:36 | EDPHYS ---
Physician Documentation [facility] Name: Lonnie Dunne Age: 47 yrs Sex: Male : 1975 Arrival Date: 03/04/2023 Time: 11:50 Bed 11 Private MD: ED Physician Michael Barillas HPI: 03/04 17:16 This 47 yrs old Male presents to ER via Unassigned with complaints of Low Back kb Pain. 17:16 The patient presents with pain that is acute, with no known mechanism of injury. The kb symptoms are located in the right flank. The patient has not recently seen a physician. 17:17 The pain does not radiate. The problem was sustained without known cause. Onset: The kb symptoms/episode began/occurred yesterday. Modifying factors: The patient symptoms are alleviated by nothing, the patient symptoms are aggravated by any movement. Associated signs and symptoms: The patient has no apparent associated signs or symptoms. Severity of symptoms: At their worst the symptoms were mild, moderate, in the emergency department the symptoms are unchanged. The patient has not experienced similar symptoms in the past. Historical: - Allergies: 12:46 No Known Allergies; iw - PMHx: 12:46 High Cholesterol; Hypertensive disorder; iw ROS: 17:15 Constitutional: Negative for fever, chills, and weight loss. kb 17:15 Back: Positive for flank pain, on the right. 17:15 All other systems are negative. Exam: 17:15 Constitutional: This is a well developed, well nourished patient who is awake, alert, kb and in no acute distress. Head/Face: Normocephalic, atraumatic. ENT: Moist Mucous membranes Cardiovascular: Regular rate and rhythm with a normal S1 and S2. No gallops, murmurs, or rubs. No pulse deficits. Respiratory: Respirations even and unlabored. No increased work of breathing. Talking in full sentences Abdomen/GI: Soft, non-tender. No distention Skin: Warm, dry with normal turgor. Normal color. MS/ Extremity: Pulses equal, no cyanosis. Neurovascular intact. Full, normal range of motion. Neuro: Awake and alert, GCS 15, oriented to person, place, time, and situation. Moves all extremities. Normal gait. Vital Signs: 12:46 BP 131 / 93; Pulse 57; Resp 16; Temp 97.6; Pulse Ox 97% on R/A; iw MDM: 12:12 Patient medically screened. kb 17:16 Differential diagnosis: strain, Herniated disc UTI, kidney stone. Data reviewed: vital kb signs, nurses notes. Counseling: I had a detailed discussion with the patient and/or guardian regarding: the historical points, exam findings, and any diagnostic results supporting the discharge/admit diagnosis, lab results, radiology results, the need for outpatient follow up, a family practitioner, to return to the emergency department if symptoms worsen or persist or if there are any questions or concerns that arise at home. 17:17 Response to treatment: the patient's symptoms have resolved after treatment. kb 03/04 12:13 Order name: CBC with Diff; Complete Time: 12:53 kb 03/04 12:13 Order name: CMP; Complete Time: 13:17 kb 03/04 12:13 Order name: Urinalysis w/ reflexes; Complete Time: 13:17 kb 03/04 12:13 Order name: CT Stone Protocol; Complete Time: 12:51 kb 03/04 12:13 Order name: IV Saline Lock; Complete Time: 12:47 kb 03/04 12:13 Order name: Labs collected and sent; Complete Time: 12:47 kb Administered Medications: 13:53 Not Given (Patient Refused): Ketorolac IVP 15 mg IVP once iw Disposition: 18:56 Co-signature as Attending Physician, Michael Barillas MD I reviewed the patient's care rt provided by the Advanced Practice Provider and agree with the diagnosis and treatment plan. Disposition Summary: 03/04/23 13:36 Discharge Ordered Location: Home kb Condition: Stable kb Diagnosis - Low back pain kb Followup: kb - With: Emergency Department - When: As needed - Reason: Worsening of condition Followup: kb - With: Private Physician - When: 2 - 3 days - Reason: Recheck today's complaints, Continuance of care, Re-evaluation by your physician Discharge Instructions: - Discharge Summary Sheet kb - Musculoskeletal Pain kb Forms: - Medication Reconciliation Form kb - Thank You Letter kb - Antibiotic Education kb - Prescription Opioid Use kb - Patient Portal Instructions kb Prescriptions: - Diclofenac Sodium 75 mg Oral tablet,delayed release (DR/EC) - take 1 tablet by ORAL route 2 times per day As needed; 30 tablet; Refills: 0, kb Product Selection Permitted - orphenadrine citrate 100 mg Oral Tablet Sustained Release - take 1 tablet by ORAL route 2 times per day As needed; 20 tablet; Refills: 0, kb Product Selection Permitted Signatures: Dispatcher [employer] Inga Szymanski FNP-C FNP-Ckb Williams, Irene, RN RN iw Michael Barillas MD MD rt
[2023-03-04 14:13] VITALS: BP 131/93; TEMP 97.6; O2SAT 97
== END 2023-03-04 13:53 | disposition home or self-care (01) ==
LOC: ER 11:50
DX: M54.50 Low back pain, unspecified (principal)
CPT/HCPCS: 36415; 74176; 76377; 80053; 81003; 85025; 99282